=== PATIENT | male | born 1990 | race Two or more races ===

== ENCOUNTER 2016-10-30 16:08 | Inpatient (IN) | payer MEDICAID ==
[~2016-10-30] VITALS: Ht 172.7 cm; Wt 51.1 kg
[~2016-10-30 16:08] MED LIST: ASP81EC PO; Atorvastatin Calcium PO; CLO01T PO; DEXL60CA3 PO; FERR324T4 PO; INSLANTI SC; INSLISPI SC; LOR05T PO
[2016-10-30] MEDS ORDERED: SODIUM CHLORIDE 0.9% 1,000 ML IVB ONE (16:53)
[2016-10-30 16:57] LABS: Basophils # (auto) 0 uL; CONDITION Y; Eosinophils # (auto) 0 uL; Hematocrit 50.9 % (41.0-53.0); Lymphocytes # (auto) 0.7 uL; Lymphocytes % (auto) 4.8 % (10.0-50.0); Mean Corpuscular Hemoglobin 30.1 pg (28.0-32.0); Mean Corpuscular Hgb Conc. 33.3 g/dL (32.0-36.0); Mean Corpuscular Volume 90.2 fL (80.0-100.0); Mean Platelet Volume 9.7 fL (7.4-10.4); Monocytes # (auto) 0.4 uL; Monocytes % (auto) 2.5 % (0.0-12.0); Neutrophils # (auto) 13.9 uL; Neutrophils % (auto) 92.7 % (37.0-80.0); Platelet Count (auto) 338 10^3/uL (140-450); Red Cell Distribution Width 14.4 % (11.6-16.0); SUSPECT SEE PRINTOUT; White Blood Cell 14.9 10^3/uL (4.4-10.8)
[2016-10-30] MEDS ORDERED: ONDANSETRON HCL 4 MG/2 ML VIAL IV ONE (17:00)
[2016-10-30] MEDS ORDERED: InsuLIN REG 1unit/0.01ml Soln (100units/ml) IV ONE (17:00)
[2016-10-30 17:16] LABS: Allen Test No; Base Excess -20.6 mmol/L (-2.0-2.0); Blood 02Sat 90.2 % (96-100); Blood COHb 0.3 % (0.5-1.5); Blood MetHb 0.5 % (0.0-1.5); HHb 9.7 % (0.0-5.0); MODE ROOM AIR; O2Hb 89.5 % (94.0-97.0); PCO2 22.3 mmHg (35.0-45.0); PCO2(T) 22.3 mmHg (35.0-45.0); PO2 68.7 mmHg (80.0-100.0); PO2(T) 68.7 mmHg (80.0-100.0); Sample Type Arterial; pH 7.112 (7.350-7.450)
[2016-10-30 17:26] LABS: Albumin 5.5 g/dL (3.4-5.0); Alkaline Phosphatase 148 U/L (45-117); Anion Gap 26 (5-15); Aspartate Aminotransferase 15 U/L (15-37); BUN/Creatinine Ratio 16.1; Bilirubin, Total 0.6 mg/dL (0.2-1.0); Blood Urea Nitrogen 28 mg/dL (7-18); Calcium 9.3 mg/dL (8.5-10.1); Chloride 91 mmol/L (98-107); GFR African American 60 mL/min; GFR Non-African American 50 mL/min; Sodium 125 mmol/L (136-145); Total Protein 9.3 g/dL (6.4-8.2)
[2016-10-30] MEDS ORDERED: SODIUM BICARBONATE 8.4 % INJ 50ML VIAL IV ONE ×2 (17:30→18:00)
[2016-10-30 17:45] LABS: Magnesium 2.3 mg/dL (1.6-2.6); Potassium 6.2 mmol/L (3.5-5.1)
[2016-10-30] MEDS ORDERED: SODIUM BICARBONATE INFANT SYR 10 ML SYRG IV ONE (17:45)
[2016-10-30 17:46] LABS: Carbon Dioxide 8 mmol/L (21-32); Glucose 591 mg/dL (74-106)
[2016-10-30] MEDS ORDERED: SODIUM BICARBONATE 8.4% INJ 50ML SYRINGE IV ONE (18:00)
[2016-10-30 18:55] LABS: Urine RBC None Seen /hpf (0 - 3)
[2016-10-30] MEDS: SODIUM CHLORIDE 0.9% 1,000 ML IV SCH ×2 (19:30→20:57)
[2016-10-30] MEDS: FAMOTIDINE (10MG/ML) 2ML VL IV SCH (19:30)
[2016-10-30] MEDS ORDERED: InsuLIN R (HUMAN) 100 UNITS in SODIUM CHL 0.9% 99 ML IV SCH ×2 (19:44→19:58)
[2016-10-30] MEDS ORDERED: SODIUM CHLORIDE 0.9% 1,000 ML IV ONE (19:45)
[2016-10-30] MEDS ORDERED: DEXTROSE (50%) 50ML SYRG IV PRN ×2 (19:45→20:00)
[2016-10-30 20:00] LABS: Urine Bilirubin Negative (Negative); Urine Color Yellow (Yellow); Urine Hyaline Cast FEW /lpf (0 - 2); Urine Nitrite Negative (Negative); Urine Squamous Epithelial Cell FEW /hpf (<5); Urine Urobilinogen Normal (Negative); Urine pH 5.5 (5.0-8.0)
[2016-10-30] MEDS ORDERED: NITROGLYCERIN 0.4 MG SL TAB SL PRN (20:00)
[2016-10-30] MEDS ORDERED: ACETAMINOPHEN 500 MG TAB PO PRN (20:00)
[2016-10-30] MEDS ORDERED: MORPHINE SULFATE 4 MG/ML SYRG IV PRN ×2 (20:00)
[2016-10-30] MEDS ORDERED: cefTRIAXone 1GM/50ML D5W 50 ML IV ONE (20:00)
[2016-10-30] MEDS ORDERED: HYDROcodone-ACET 5/325MG TAB PO PRN (20:00)
[2016-10-30] MEDS ORDERED: LORazepam 0.5 MG TAB PO PRN (20:00)
[2016-10-30] MEDS ORDERED: PROMETHAZINE HCL 25 MG/ML 1ML IV PRN (20:00)
[2016-10-30] MEDS ORDERED: TEMAZEPAM 15 MG CAP PO PRN (20:00)
[2016-10-30 20:09] LABS: Urine Blood Negative /uL (Negative); Urine Glucose 4+ mg/dL (Normal); Urine Ketone 4+ (Negative)
[2016-10-30] MEDS: ACCU-CHEK COMFORT CURVE STRIP VI SCH ×4 (20:30→23:30)
[2016-10-30] MEDS ORDERED: ACCU-CHEK COMFORT CURVE STRIP VI SCH (21:00)
[2016-10-30 21:27] LABS: BUN/Creatinine Ratio 18.2; Calcium 9.3 mg/dL (8.5-10.1); Potassium 5.1 mmol/L (3.5-5.1)
[2016-10-30] MEDS ORDERED: SODIUM CHLORIDE 0.9% 1,000 ML IV SCH (23:58)
[2016-10-31] MEDS: ACCU-CHEK COMFORT CURVE STRIP VI SCH ×13 (01:00→12:36)
[2016-10-31 02:07] LABS: Potassium 4.2 mmol/L (3.5-5.1)
[2016-10-31 02:09] LABS: BUN/Creatinine Ratio 18.6
[2016-10-31 02:13] LABS: Calcium 8.4 mg/dL (8.5-10.1)
[2016-10-31] MEDS: SODIUM CHLORIDE 0.9% 1,000 ML IV SCH ×3 (04:00→15:15)
[2016-10-31 06:24] LABS: Basophils # (auto) 0 uL; Basophils % (auto) 0.3 % (0.0-2.0); CONDITION Y; Eosinophils # (auto) 0 uL; Eosinophils % (auto) 0.5 % (0.0-7.0); Hematocrit 39.5 % (41.0-53.0); Hemoglobin 13.9 g/dL (13.5-17.5); Lymphocytes # (auto) 1.5 uL; Lymphocytes % (auto) 17.9 % (10.0-50.0); Mean Corpuscular Hgb Conc. 35.1 g/dL (32.0-36.0); Mean Corpuscular Volume 88.4 fL (80.0-100.0); Mean Platelet Volume 8.5 fL (7.4-10.4); Monocytes # (auto) 0.9 uL; Monocytes % (auto) 11.2 % (0.0-12.0); Neutrophils # (auto) 5.8 uL; Neutrophils % (auto) 70.1 % (37.0-80.0); Platelet Count (auto) 275 10^3/uL (140-450); Red Cell Distribution Width 14.6 % (11.6-16.0); White Blood Cell 8.3 10^3/uL (4.4-10.8)
[2016-10-31 06:48] LABS: Albumin 3.7 g/dL (3.4-5.0); Calcium 8.2 mg/dL (8.5-10.1); Potassium 3.5 mmol/L (3.5-5.1)
[2016-10-31 06:51] LABS: Bilirubin, Total 0.5 mg/dL (0.2-1.0); Total Protein 6.5 g/dL (6.4-8.2)
[2016-10-31] MEDS: FAMOTIDINE (10MG/ML) 2ML VL IV SCH (08:23)
[2016-10-31] MEDS ORDERED: DEXTROSE (50%) 50ML SYRG IV PRN (13:15)
[2016-10-31 14:03] LABS: BUN/Creatinine Ratio 14.9; Calcium 7.8 mg/dL (8.5-10.1); Potassium 3.5 mmol/L (3.5-5.1)
[2016-10-31 14:58] VITALS: BP 104/62
[2016-10-31 15:00] VITALS: BP 104/62
[2016-10-31] MEDS ORDERED: InsuLIN REG 1unit/0.01ml Soln (100units/ml) SC SCH (16:00)
[2016-10-31] MEDS ORDERED: ACCU-CHEK COMFORT CURVE STRIP VI SCH (16:00)
[2016-10-31 16:11] VITALS: BP 104/62
== END 2016-10-31 17:08 | disposition home or self-care (01) | DRG 420 ==
LOC: EDBD 16:08 → ER 16:16 → TELE 16:17 → TELE-CENTR 10-31 14:33
PROVIDERS: ADMIT Internal Medicine; ATTEND Internal Medicine
DX: E10.10 Type 1 diabetes mellitus with ketoacidosis without coma (principal); N17.9 Acute kidney failure, unspecified; I10 Essential (primary) hypertension; E03.9 Hypothyroidism, unspecified; E78.00 Pure hypercholesterolemia, unspecified; E78.5 Hyperlipidemia, unspecified; F41.9 Anxiety disorder, unspecified; E86.0 Dehydration; E87.1 Hypo-osmolality and hyponatremia; E87.6 Hypokalemia; K21.9 Gastro-esophageal reflux disease without esophagitis; Z79.4 Long term (current) use of insulin; Z82.3 Family history of stroke; Z82.49 Family history of ischemic heart disease and other diseases of the circulatory system; Z83.3 Family history of diabetes mellitus
CPT/HCPCS: 36415; 36600; 71020; 74176; 76705; 80048; 80053; 80307; 81001; 82010; 82150; 82805; 82962; 83036; 83605; 83690; 83735; 84439; 84443; 84481; 84484; 85025; 85652; 86141; 87040; 87086; 96365; 96368; 96375; 99291; J0696; J1815; J2405; J3490

== ENCOUNTER 2017-01-28 16:42 | Emergency (ER) | payer MEDICAID ==
[~2017-01-28] VITALS: Ht 170.2 cm; Wt 54.4 kg
[2017-01-28 16:46] VITALS: BP 118/85
[2017-01-28 17:57] LABS: Urine RBC None Seen /hpf (0 - 3)
[2017-01-28 18:08] LABS: Basophils # (auto) 0 uL; Basophils % (auto) 0.4 % (0.0-2.0); Eosinophils # (auto) 0.1 uL; Eosinophils % (auto) 2.9 % (0.0-7.0); Hemoglobin 15.1 g/dL (13.5-17.5); Lymphocytes # (auto) 1.7 uL; Lymphocytes % (auto) 34.3 % (10.0-50.0); Mean Corpuscular Hemoglobin 31.5 pg (28.0-32.0); Mean Corpuscular Hgb Conc. 35.1 g/dL (32.0-36.0); Mean Corpuscular Volume 89.8 fL (80.0-100.0); Mean Platelet Volume 8.4 fL (6.9-10.8); Monocytes # (auto) 0.4 uL; Monocytes % (auto) 7.7 % (0.0-12.0); Neutrophils # (auto) 2.6 uL; Neutrophils % (auto) 54.7 % (37.0-80.0); Nucleated Red Blood Cells % 0.2 %; Platelet Count (auto) 249 10^3/uL (140-450); Red Cell Distribution Width 13.5 % (11.8-14.3); White Blood Cell 4.8 10^3/uL (4.4-10.8)
[2017-01-28 18:17] LABS: Urine Bilirubin Negative (Negative); Urine Blood Negative /uL (Negative); Urine Color Yellow (Yellow); Urine Glucose 4+ mg/dL (Normal); Urine Ketone 3+ (Negative); Urine Nitrite Negative (Negative); Urine Urobilinogen Normal (Negative); Urine pH 5.5 (5.0-8.0)
[2017-01-28 18:23] LABS: Albumin 4.6 g/dL (3.4-5.0); Calcium 9.5 mg/dL (8.5-10.1); Potassium 4.6 mmol/L (3.5-5.1)
[2017-01-28 19:07] LABS: BUN/Creatinine Ratio 7.3; Bilirubin, Total 0.9 mg/dL (0.2-1.0); Total Protein 7.3 g/dL (6.4-8.2)
[2017-01-28 20:22] LABS: Allen Test Yes; Base Excess -2.7 mmol/L (-2.0-2.0); Blood 02Sat 95.2 % (96-100); Blood COHb 0.1 % (0.5-1.5); Blood MetHb 0.3 % (0.0-1.5); HCO3 21.6 mmol/L (22-26.0); HHb 4.8 % (0.0-5.0); MODE ROOM AIR; O2Hb 94.8 % (94.0-97.0); PCO2 36.4 mmHg (35.0-45.0); PCO2(T) 36.4 mmHg (35.0-45.0); PO2 83.1 mmHg (80.0-100.0); PO2(T) 83.1 mmHg (80.0-100.0); Sample Type Arterial; pH 7.392 (7.350-7.450)
== END 2017-01-28 22:03 | disposition left against medical advice (07) ==
LOC: ER 16:58
DX: R06.02 Shortness of breath (principal); Z53.21 Procedure and treatment not carried out due to patient leaving prior to being seen by health care provider
CPT/HCPCS: 36415; 36600; 80053; 80307; 80320; 81001; 82010; 82805; 85025

== ENCOUNTER 2017-02-28 07:49 | Inpatient (IN) | payer MEDICAID ==
[~2017-02-28] VITALS: Ht 170.2 cm; Wt 55.0 kg
[~2017-02-28 07:49] MED LIST changes: -LOR05T PO; +LORA-654 PO
[2017-02-28] MEDS ORDERED: SODIUM CHLORIDE 0.9% 1,000 ML IV ONE (09:27)
[2017-02-28] MEDS ORDERED: SODIUM CHLORIDE 0.9% 3,000 ML IV ONE (09:30)
[2017-02-28] MEDS ORDERED: PROMETHAZINE HCL 25 MG/ML 1ML IV ONE (09:30)
[2017-02-28 09:45] LABS: Basophils # (auto) 0.1 uL; Basophils % (auto) 0.4 % (0.0-2.0); Eosinophils # (auto) 0 uL; Hematocrit 47.6 % (41.0-53.0); Hemoglobin 15.8 g/dL (13.5-17.5); Lymphocytes # (auto) 0.5 uL; Mean Corpuscular Hemoglobin 31.7 pg (28.0-32.0); Mean Corpuscular Hgb Conc. 33.3 g/dL (32.0-36.0); Mean Corpuscular Volume 95.2 fL (80.0-100.0); Mean Platelet Volume 9.2 fL (6.9-10.8); Monocytes # (auto) 0.7 uL; Monocytes % (auto) 3.7 % (0.0-12.0); Neutrophils # (auto) 16.6 uL; Neutrophils % (auto) 92.9 % (37.0-80.0); Platelet Count (auto) 314 10^3/uL (140-450); Red Cell Distribution Width 13.4 % (11.8-14.3); White Blood Cell 17.9 10^3/uL (4.4-10.8)
[2017-02-28 10:00] LABS: Albumin 4.8 g/dL (3.4-5.0); Bilirubin, Total 0.4 mg/dL (0.2-1.0); Calcium 8.8 mg/dL (8.5-10.1); Total Protein 8.6 g/dL (6.4-8.2)
[2017-02-28 10:08] LABS: Urine Bilirubin Negative (Negative); Urine Blood Negative /uL (Negative); Urine Color Colorless (Yellow); Urine Glucose 4+ mg/dL (Normal); Urine Ketone 4+ (Negative); Urine Nitrite Negative (Negative); Urine RBC None Seen /hpf (0 - 3); Urine Urobilinogen Normal (Negative)
[2017-02-28] MEDS ORDERED: InsuLIN REG 1unit/0.01ml Soln (100units/ml) IV ONE (10:15)
[2017-02-28] MEDS ORDERED: CALCIUM CHL 100MG/ML 1,000 MG in D5W 5% 100 ML IV ONE (10:15)
[2017-02-28] MEDS ORDERED: SODIUM BICARBONATE 8.4 % INJ 50ML VIAL IV ONE ×2 (10:15→15:15)
[2017-02-28] MEDS ORDERED: DEXTROSE (50%) 50ML SYRG IV ONE (10:15)
[2017-02-28] MEDS ORDERED: NALBUPHINE HCL 10 MG/1ml INJECTION IV ONE (10:15)
[2017-02-28] MEDS ORDERED: ALBUTEROL SULF 2.5 MG/0.5ML(0.5%) NEB SOLN NEB ONE (10:15)
[2017-02-28] MEDS ORDERED: InsuLIN R (HUMAN) 100 UNITS in SODIUM CHL 0.9% 99 ML IV SCH ×2 (10:17→12:20)
[2017-02-28] MEDS ORDERED: SODIUM BICARBONATE 8.4% INJ 50ML SYRINGE ONE (10:21)
[2017-02-28] MEDS: ACCU-CHEK COMFORT CURVE STRIP VI SCH ×9 (10:30→23:47)
[2017-02-28] MEDS ORDERED: DEXTROSE (50%) 50ML SYRG IV PRN ×2 (10:30→12:30)
[2017-02-28] MEDS ORDERED: ACETAMINOPHEN 325 MG TAB PO PRN (12:45)
[2017-02-28] MEDS ORDERED: HYDROcodone-ACET 5/325MG TAB PO PRN (12:45)
[2017-02-28] MEDS ORDERED: NITROGLYCERIN 0.4 MG SL TAB SL PRN (12:45)
[2017-02-28] MEDS ORDERED: LORazepam 0.5 MG TAB PO PRN (12:45)
[2017-02-28] MEDS ORDERED: cefTRIAXone 1GM/50ML D5W 50 ML IV ONE (12:45)
[2017-02-28] MEDS ORDERED: TEMAZEPAM 15 MG CAP PO PRN (12:45)
[2017-02-28] MEDS ORDERED: ONDANSETRON HCL 4 MG/2 ML VIAL IV PRN (12:45)
[2017-02-28] MEDS ORDERED: VANCOMYCIN PER PHARMACY 0 MG IV SCH (12:45)
[2017-02-28] MEDS ORDERED: cloNIDine HCL 0.1 MG TAB PO PRN (12:45)
[2017-02-28] MEDS ORDERED: MORPHINE SULFATE 10 MG/ML INJ 1ML SDV IV PRN ×2 (12:45)
[2017-02-28] MEDS ORDERED: DOCUSATE SOD 100 MG CAP PO PRN (12:45)
[2017-02-28] MEDS: cefTRIAXone 1GM/50ML D5W 50 ML IV SCH (12:51)
[2017-02-28] MEDS ORDERED: ASPirin-EC 81 mg tab PO ONE (13:00)
[2017-02-28] MEDS ORDERED: MULTIPLE VITAMIN TAB PO ONE (13:00)
[2017-02-28] MEDS ORDERED: FAMOTIDINE 20 MG TAB PO ONE (13:00)
[2017-02-28] MEDS: SODIUM CHLORIDE 0.9% 1,000 ML IV SCH ×5 (13:15→21:35)
[2017-02-28] MEDS: VANCOMYCIN 750 MG in D5W 5% 250 ML IV SCH (13:19)
[2017-02-28 13:44] LABS: Lactic Acid w/Reflex 3.8 mmol/L (0.4-2.0)
[2017-02-28 13:45] LABS: REFLEX LACTIC ACID YES OR NO YES
[2017-02-28 14:49] LABS: Base Excess -16.2 mmol/L (-2.0-2.0); Blood 02Sat 95.2 % (96-100); Blood COHb 0.3 % (0.5-1.5); Blood MetHb 0.4 % (0.0-1.5); HCO3 9.7 mmol/L (22-26.0); HHb 4.8 % (0.0-5.0); MODE ROOM AIR; O2Hb 94.5 % (94.0-97.0); PCO2 24.6 mmHg (35.0-45.0); PCO2(T) 24.6 mmHg (35.0-45.0); PO2 87.5 mmHg (80.0-100.0); PO2(T) 87.5 mmHg (80.0-100.0); Room 1009-ERT; Sample Type Arterial; pH 7.214 (7.350-7.450)
[2017-02-28] MEDS: FERROUS SULFATE 325 MG TAB PO SCH (17:26)
[2017-02-28 18:20] LABS: BUN/Creatinine Ratio 8.6; Calcium 8.5 mg/dL (8.5-10.1); Potassium 3.7 mmol/L (3.5-5.1)
[2017-02-28 18:24] LABS: Lactic Acid w/Reflex 2.6 mmol/L (0.4-2.0)
[2017-02-28 18:25] LABS: REFLEX LACTIC ACID YES OR NO NO
[2017-02-28] MEDS: FAMOTIDINE 20 MG TAB PO SCH (22:05)
[2017-02-28] MEDS: ATORVASTATIN 20 MG TAB PO SCH (22:05)
[2017-03-01] MEDS: SODIUM CHLORIDE 0.9% 1,000 ML IV SCH (01:00)
[2017-03-01 01:02] LABS: BUN/Creatinine Ratio 5.2; Calcium 8.4 mg/dL (8.5-10.1); Potassium 3.4 mmol/L (3.5-5.1)
[2017-03-01] MEDS: ACCU-CHEK COMFORT CURVE STRIP VI SCH ×11 (01:30→21:17)
[2017-03-01] MEDS ORDERED: VANCOMYCIN 1GM/250ML 250 ML IV ONE (02:38)
[2017-03-01] MEDS: VANCOMYCIN 750 MG in D5W 5% 250 ML IV SCH (03:09)
[2017-03-01 06:17] LABS: Basophils # (auto) 0 uL; Basophils % (auto) 0.2 % (0.0-2.0); Eosinophils # (auto) 0 uL; Eosinophils % (auto) 0.5 % (0.0-7.0); Hematocrit 34.5 % (41.0-53.0); Hemoglobin 12.1 g/dL (13.5-17.5); Lymphocytes # (auto) 1.4 uL; Lymphocytes % (auto) 16.9 % (10.0-50.0); Mean Corpuscular Hemoglobin 31.4 pg (28.0-32.0); Mean Corpuscular Volume 89.7 fL (80.0-100.0); Mean Platelet Volume 8.5 fL (6.9-10.8); Monocytes # (auto) 0.6 uL; Monocytes % (auto) 7.7 % (0.0-12.0); Neutrophils % (auto) 74.7 % (37.0-80.0); Nucleated Red Blood Cells % 0.1 %; Platelet Count (auto) 235 10^3/uL (140-450); Red Cell Distribution Width 13.2 % (11.8-14.3); White Blood Cell 8.1 10^3/uL (4.4-10.8)
[2017-03-01 06:20] LABS: BUN/Creatinine Ratio 5.3; Bilirubin, Total 0.6 mg/dL (0.2-1.0); Calcium 8.1 mg/dL (8.5-10.1); Total Protein 5.6 g/dL (6.4-8.2)
[2017-03-01 06:27] LABS: Potassium 2.9 mmol/L (3.5-5.1)
[2017-03-01] MEDS: D5W/SOD CHL 0.45%/KCL 20MEQ 1,000 ML IV SCH ×2 (07:11→16:29)
[2017-03-01] MEDS: FERROUS SULFATE 325 MG TAB PO SCH ×2 (08:00→16:45)
[2017-03-01 08:14] LABS: BUN/Creatinine Ratio 5.7; Calcium 8.1 mg/dL (8.5-10.1)
[2017-03-01 08:25] LABS: Potassium 2.8 mmol/L (3.5-5.1)
[2017-03-01] MEDS: MULTIPLE VITAMIN TAB PO SCH (09:29)
[2017-03-01] MEDS: ASPirin-EC 81 mg tab PO SCH (09:29)
[2017-03-01] MEDS: FAMOTIDINE 20 MG TAB PO SCH ×2 (09:29→21:16)
[2017-03-01] MEDS ORDERED: DEXILANT 60 MG PO SCH (10:00)
[2017-03-01] MEDS: cefTRIAXone 1GM/50ML D5W 50 ML IV SCH (10:30)
[2017-03-01] MEDS ORDERED: DEXTROSE (50%) 50ML SYRG IV PRN (11:00)
[2017-03-01] MEDS ORDERED: POTASSIUM CHL 20 Meq TABLET PO ONE (11:00)
[2017-03-01] MEDS: InsuLIN REG 1unit/0.01ml Soln (100units/ml) SC SCH ×3 (11:35→21:33)
[2017-03-01] MEDS: Boost Glucose Control 8 Ounces PO SCH ×3 (12:00→21:17)
[2017-03-01 16:09] VITALS: BP 130/83
[2017-03-01 16:24] LABS: BUN/Creatinine Ratio 3.1; Calcium 8.3 mg/dL (8.5-10.1); Potassium 3.3 mmol/L (3.5-5.1)
[2017-03-01] MEDS: VANCOMYCIN 1GM/250ML 250 ML IV SCH (16:45)
[2017-03-01] MEDS: ATORVASTATIN 20 MG TAB PO SCH (21:17)
[2017-03-01 21:19] VITALS: BP 121/82
[2017-03-01 21:22] VITALS: BP 126/86
[2017-03-01] MEDS ORDERED: INSULIN DETEMIR(LEVEMIR) 1unit/0.01ml Soln (100units/ml) SC SCH (22:00)
[2017-03-02] MEDS ORDERED: POTASSIUM CHL 20 Meq TABLET PO ONE (01:00)
[2017-03-02] MEDS: ACCU-CHEK COMFORT CURVE STRIP VI SCH ×3 (01:26→07:39)
[2017-03-02] MEDS: InsuLIN REG 1unit/0.01ml Soln (100units/ml) SC SCH ×3 (01:27→07:46)
[2017-03-02] MEDS: D5W/SOD CHL 0.45%/KCL 20MEQ 1,000 ML IV SCH (03:00)
[2017-03-02 04:59] VITALS: BP 134/98
[2017-03-02 05:06] LABS: Thyroxine (T4) 4.7 ug/dL (4.5-12.0)
[2017-03-02 05:16] LABS: Basophils # (auto) 0.1 uL; Basophils % (auto) 0.8 % (0.0-2.0); Eosinophils # (auto) 0.1 uL; Eosinophils % (auto) 0.7 % (0.0-7.0); Hematocrit 40.8 % (41.0-53.0); Hemoglobin 14.1 g/dL (13.5-17.5); Lymphocytes # (auto) 1.5 uL; Lymphocytes % (auto) 20.8 % (10.0-50.0); Mean Corpuscular Hemoglobin 31.1 pg (28.0-32.0); Mean Corpuscular Hgb Conc. 34.7 g/dL (32.0-36.0); Mean Corpuscular Volume 89.8 fL (80.0-100.0); Mean Platelet Volume 8.8 fL (6.9-10.8); Monocytes # (auto) 0.5 uL; Monocytes % (auto) 6.7 % (0.0-12.0); Nucleated Red Blood Cells % 0.1 %; Platelet Count (auto) 265 10^3/uL (140-450)
[2017-03-02 05:41] LABS: Albumin 3.3 g/dL (3.4-5.0); BUN/Creatinine Ratio 4.5; Bilirubin, Total 0.5 mg/dL (0.2-1.0); Calcium 8.7 mg/dL (8.5-10.1); Potassium 3.3 mmol/L (3.5-5.1); Total Protein 6.4 g/dL (6.4-8.2)
[2017-03-02] MEDS: Boost Glucose Control 8 Ounces PO SCH (06:00)
[2017-03-02] MEDS: VANCOMYCIN 1GM/250ML 250 ML IV SCH (06:23)
[2017-03-02] MEDS: cefTRIAXone 1GM/50ML D5W 50 ML IV SCH (07:38)
[2017-03-02] MEDS: FAMOTIDINE 20 MG TAB PO SCH (07:38)
[2017-03-02] MEDS: FERROUS SULFATE 325 MG TAB PO SCH (07:39)
[2017-03-02] MEDS: MULTIPLE VITAMIN TAB PO SCH (07:39)
[2017-03-02] MEDS: ASPirin-EC 81 mg tab PO SCH (07:39)
[2017-03-02 09:00] VITALS: BP 117/72
[2017-03-02] MEDS ORDERED: POTASSIUM CHLORIDE 8 MEQ TAB PO ONE (09:45)
[2017-03-02 10:38] VITALS: BP 117/72
== END 2017-03-02 11:30 | disposition home or self-care (01) | DRG 420 ==
LOC: ER 07:49 → EDBD 07:49 → TELE 07:50 → TELE-E-ADS 03-01 12:37 → TELE-WESTW 03-01 16:27
PROVIDERS: ADMIT Internal Medicine; ATTEND Internal Medicine
DX: E10.10 Type 1 diabetes mellitus with ketoacidosis without coma (principal); K85.90 Acute pancreatitis without necrosis or infection, unspecified; E44.0 Moderate protein-calorie malnutrition; E10.21 Type 1 diabetes mellitus with diabetic nephropathy; E87.5 Hyperkalemia; K86.1 Other chronic pancreatitis; E86.0 Dehydration; D63.8 Anemia in other chronic diseases classified elsewhere; E03.9 Hypothyroidism, unspecified; E10.22 Type 1 diabetes mellitus with diabetic chronic kidney disease; E78.5 Hyperlipidemia, unspecified; E87.6 Hypokalemia; F12.10 Cannabis abuse, uncomplicated; F15.10 Other stimulant abuse, uncomplicated; F41.9 Anxiety disorder, unspecified; I12.9 Hypertensive chronic kidney disease with stage 1 through stage 4 chronic kidney disease, or unspecified chronic kidney disease; N18.2 Chronic kidney disease, stage 2 (mild); K21.9 Gastro-esophageal reflux disease without esophagitis; Z79.4 Long term (current) use of insulin; Z82.3 Family history of stroke; Z82.49 Family history of ischemic heart disease and other diseases of the circulatory system; Z83.3 Family history of diabetes mellitus; Z79.899 Other long term (current) drug therapy; Z79.82 Long term (current) use of aspirin
CPT/HCPCS: 36415; 36600; 71020; 80048; 80053; 80307; 81001; 82010; 82150; 82805; 82962; 83036; 83605; 83690; 83735; 83930; 84443; 85025; 87040; 87086; 93306; 94640; 96361; 96374; 96375; 99291; J0696; J1815; J2405; J7060

== ENCOUNTER 2017-04-27 14:12 | Emergency (ER) | payer MEDICAID ==
[~2017-04-27] VITALS: Ht 170.2 cm; Wt 63.5 kg
[2017-04-27 14:37] VITALS: BP 141/99
[2017-04-27 15:08] LABS: Basophils # (auto) 0 uL; Basophils % (auto) 0.6 % (0.0-2.0); Eosinophils # (auto) 0 uL; Hematocrit 47.7 % (41.0-53.0); Hemoglobin 16.3 g/dL (13.5-17.5); Lymphocytes # (auto) 0.4 uL; Lymphocytes % (auto) 8.9 % (10.0-50.0); Mean Corpuscular Hemoglobin 31.3 pg (28.0-32.0); Mean Corpuscular Hgb Conc. 34.1 g/dL (32.0-36.0); Mean Corpuscular Volume 91.8 fL (80.0-100.0); Monocytes # (auto) 0.2 uL; Neutrophils # (auto) 4.1 uL; Neutrophils % (auto) 86.5 % (37.0-80.0); Nucleated Red Blood Cells % 0.1 %; Platelet Count (auto) 239 10^3/uL (140-450); Red Blood Cells 5.19 10^6/uL (4.5-5.90); Red Cell Distribution Width 12.9 % (11.8-14.3); White Blood Cell 4.8 10^3/uL (4.4-10.8)
[2017-04-27 15:33] LABS: Albumin 4.3 g/dL (3.4-5.0); BUN/Creatinine Ratio 13.4; Bilirubin, Total 0.4 mg/dL (0.2-1.0); Calcium 8.1 mg/dL (8.5-10.1); Potassium 4.5 mmol/L (3.5-5.1); Total Protein 7.6 g/dL (6.4-8.2)
== END 2017-04-27 16:37 | disposition left against medical advice (07) ==
LOC: EDBD 14:12 → ER 14:29
DX: R73.9 Hyperglycemia, unspecified (principal); Z53.21 Procedure and treatment not carried out due to patient leaving prior to being seen by health care provider
CPT/HCPCS: 36415; 80053; 85025

== ENCOUNTER 2018-11-28 10:25 | Inpatient (IN) | payer SELFPAY ==
[~2018-11-28] VITALS: Ht 33 cm; Wt 54.9 kg
[~2018-11-28 10:25] MED LIST changes: -LORA-654 PO; +LORA0.5T12 PO
[2018-11-28] MEDS ORDERED: SODIUM CHLORIDE 0.9% 1,000 ML IV SCH ×5 (10:33→18:19)
[2018-11-28] MEDS ORDERED: InsuLIN R (HUMAN) 100 UNITS in SODIUM CHL 0.9% 99 ML IV SCH (10:33)
[2018-11-28] MEDS ORDERED: DEXTROSE (50%) 50ML SYRG IV PRN ×3 (10:45→21:45)
[2018-11-28 10:58] LABS: Basophils # (auto) 0.1 uL; Basophils % (auto) 0.6 % (0.0-2.0); Eosinophils # (auto) 0 uL; Eosinophils % (auto) 0.1 % (0.0-7.0); Hematocrit 47.4 % (41.0-53.0); Hemoglobin 15.5 g/dL (13.5-17.5); Lymphocytes % (auto) 10.9 % (10.0-50.0); Mean Corpuscular Hemoglobin 31.2 pg (28.0-32.0); Mean Corpuscular Hgb Conc. 32.8 g/dL (32.0-36.0); Mean Corpuscular Volume 95.3 fL (80.0-100.0); Monocytes # (auto) 0.6 uL; Monocytes % (auto) 6.1 % (0.0-12.0); Neutrophils # (auto) 7.7 uL; Neutrophils % (auto) 82.3 % (37.0-80.0); Platelet Count (auto) 280 10^3/uL (140-450); Red Blood Cells 4.97 10^6/uL (4.5-5.90); Red Cell Distribution Width 13.9 % (11.8-14.3); White Blood Cell 9.4 10^3/uL (4.4-10.8)
[2018-11-28 11:09] LABS: Calcium 9.5 mg/dL (8.5-10.1); Magnesium 2.2 mg/dL (1.6-2.6)
[2018-11-28] MEDS ORDERED: ONDANSETRON HCL 4 MG/2 ML VIAL IV ONE (11:15)
[2018-11-28 11:37] LABS: Potassium 5.8 mmol/L (3.5-5.1)
[2018-11-28] MEDS ORDERED: SODIUM CHLORIDE 0.9% 1,000 ML IV ONE (11:45)
[2018-11-28] MEDS ORDERED: InsuLIN REG 1unit/0.01ml Soln (100units/ml) IV ONE (11:45)
[2018-11-28] MEDS ORDERED: ACCU-CHEK COMFORT CURVE STRIP VI SCH (12:00)
[2018-11-28] MEDS ORDERED: traMADol HCL 50 MG TAB PO PRN (12:30)
[2018-11-28] MEDS ORDERED: MORPHINE SULF INJ 2 MG/ML SYRINGE 1ML IV PRN (12:30)
[2018-11-28] MEDS ORDERED: INSULIN LANTUS (GLARGINE) 1 /0.01ml (100units/ml) SC ONE (12:30)
[2018-11-28] MEDS ORDERED: PROMETHAZINE HCL 25 MG/ML 1ML IV PRN (12:30)
[2018-11-28] MEDS ORDERED: ACETAMINOPHEN 500 MG TAB PO PRN (12:30)
[2018-11-28] MEDS ORDERED: NITROGLYCERIN 0.4 MG SL TAB SL PRN (12:30)
[2018-11-28] MEDS: InsuLIN R (HUMAN) 100 UNITS in SODIUM CHL 0.9% 99 ML IV SCH ×2 (13:19→21:21)
[2018-11-28 13:31] LABS: BUN/Creatinine Ratio 13.3; Calcium 7.7 mg/dL (8.5-10.1); Potassium 4.7 mmol/L (3.5-5.1)
[2018-11-28 13:31] LABS: Urine Bacteria NONE SEEN /hpf (None Seen); Urine Blood Negative /uL (Negative); Urine Hyaline Cast FEW /lpf (0 - 2); Urine Mucus FEW (None Seen); Urine Specific Gravity 1.017 (1.001-1.035); Urine WBC <1 /hpf (0 - 3)
[2018-11-28] MEDS: SODIUM CHLORIDE 0.9% 1,000 ML IV SCH ×3 (13:40→22:00)
[2018-11-28] MEDS: ACCU-CHEK COMFORT CURVE STRIP VI SCH ×6 (14:00→21:00)
[2018-11-28 16:36] LABS: BUN/Creatinine Ratio 12.4; Calcium 7.8 mg/dL (8.5-10.1); Potassium 4.9 mmol/L (3.5-5.1)
[2018-11-28] MEDS ORDERED: ALUM & MAG HYDROX-SIMETH LIQ(MAALOX) 30 ML PO PRN (19:45)
[2018-11-28 21:04] LABS: Calcium 7.3 mg/dL (8.5-10.1); Potassium 4.2 mmol/L (3.5-5.1)
[2018-11-28] MEDS: INSULIN LANTUS (GLARGINE) 1 /0.01ml (100units/ml) SC SCH (22:00)
[2018-11-29] MEDS: ACCU-CHEK COMFORT CURVE STRIP VI SCH ×5 (00:05→17:33)
[2018-11-29] MEDS: TEMAZEPAM 15 MG CAP PO PRN ×2 (00:13→23:00)
[2018-11-29] MEDS: InsuLIN REG 1unit/0.01ml Soln (100units/ml) SC SCH ×5 (04:26→18:05)
[2018-11-29] MEDS: SODIUM CHLORIDE 0.9% 1,000 ML IV SCH ×2 (04:27→11:20)
[2018-11-29 06:58] LABS: Calcium 7.7 mg/dL (8.5-10.1); Potassium 4.2 mmol/L (3.5-5.1)
[2018-11-29 07:00] LABS: BUN/Creatinine Ratio 7.5
[2018-11-29] MEDS: INSULIN LANTUS (GLARGINE) 1 /0.01ml (100units/ml) SC SCH ×2 (08:50→22:00)
[2018-11-29] MEDS: PANTOPRAZOLE 40 MG TAB PO SCH (08:54)
[2018-11-29 11:42] VITALS: BP 125/83
--- NOTE | 2018-11-29 11:47 | NUR ---
PT ARRIVED TO FLOOR APPROX. 1100 FROM ER. A/O X4. MOTHER AT BEDSIDE. DENIES PAIN. VSS. WILL CONTINUE TO MONITOR.
[2018-11-29 13:00] VITALS: BP 125/83
[2018-11-29] MEDS ORDERED: LEVOTHYROXINE SODIUM 100 MCG/5 ML INJ IV ONE (14:30)
[2018-11-29 15:37] LABS: Free T3 1.58 pg/mL (2.3-4.2); Free T4 (Free Thyroxine) 0.68 ng/dL (0.89-1.76)
[2018-11-29 17:00] VITALS: BP 103/73
--- NOTE | 2018-11-29 19:30 | NUR ---
Opening Shift Note Assumed care of patient, awake and alertX4. Parents at bedside. No S/S of distress/SOB or pain.Skin clear. IV patent Steady gait. Instructed on POC and to call for assist PRN, will continue to monitor for changes Q1hr and PRN.
[2018-11-29 22:08] VITALS: BP 125/74
[2018-11-30 05:06] VITALS: BP 110/69
[2018-11-30] MEDS: InsuLIN REG 1unit/0.01ml Soln (100units/ml) SC SCH ×3 (06:00→11:48)
[2018-11-30] MEDS: ACCU-CHEK COMFORT CURVE STRIP VI SCH ×3 (06:22→11:49)
[2018-11-30] MEDS: INSULIN LANTUS (GLARGINE) 1 /0.01ml (100units/ml) SC SCH (06:25)
[2018-11-30] MEDS ORDERED: LEVOTHYROXINE SODIUM 50 MCG TAB PO SCH (07:00)
[2018-11-30 08:22] VITALS: BP 130/81
[2018-11-30] MEDS ORDERED: LEV50T PO (10:03)
[2018-11-30] MEDS ORDERED: CALCIUM ACETATE 667 MG CAP PO ONE (11:30)
[2018-11-30] MEDS: PANTOPRAZOLE 40 MG TAB PO SCH (11:47)
--- NOTE | 2018-11-30 13:41 | NUR ---
DISCHARGE INSTRUCTIONS GIVEN TO PT AND FAMILY. PT VERBALIZED UNDERSTANDING. PT DISCHARGED HOME WITH FAMILY.
== END 2018-11-30 13:30 | disposition home or self-care (01) | DRG 637 ==
LOC: EDBD 10:25 → ER 10:25 → EDUNIT# 10:25 → OVERFLOW 10:26 → TELE-WESTW 11-29 11:44 → WEST WING 11-29 13:42
PROVIDERS: ADMIT Internal Medicine; ATTEND Internal Medicine
DX: E11.10 Type 2 diabetes mellitus with ketoacidosis without coma (principal); N17.0 Acute kidney failure with tubular necrosis; E87.1 Hypo-osmolality and hyponatremia; Z79.4 Long term (current) use of insulin; K21.9 Gastro-esophageal reflux disease without esophagitis; E87.5 Hyperkalemia; E87.8 Other disorders of electrolyte and fluid balance, not elsewhere classified; E78.5 Hyperlipidemia, unspecified; E03.9 Hypothyroidism, unspecified; I10 Essential (primary) hypertension; F41.9 Anxiety disorder, unspecified; Z83.3 Family history of diabetes mellitus; Z82.49 Family history of ischemic heart disease and other diseases of the circulatory system; Z82.3 Family history of stroke; Z91.14 Patient's other noncompliance with medication regimen; Z79.899 Other long term (current) drug therapy
CPT/HCPCS: 36415; 36600; 71045; 80048; 81001; 82010; 82150; 82805; 82962; 83036; 83690; 83735; 84100; 84439; 84443; 84481; 85025; 93005; 94761; 96365; 96372; 96375; 99291; G0378; J1815; J2405; J3490

== ENCOUNTER → 2019-03-09 | Outpatient (CLI) | payer MEDICAID ==
[~2019-03-09] VITALS: Ht 170.2 cm; Wt 56.7 kg
[~2019-03-09] MED LIST changes: +LEV50T PO
== END | disposition home or self-care (01) ==
LOC: Rad HDHVI 09:17
PROVIDERS: ATTEND Internal Medicine
DX: E03.9 Hypothyroidism, unspecified (principal); R42 Dizziness and giddiness; R06.02 Shortness of breath; R53.83 Other fatigue; F41.9 Anxiety disorder, unspecified; E11.9 Type 2 diabetes mellitus without complications; E78.00 Pure hypercholesterolemia, unspecified
CPT/HCPCS: 93017

== ENCOUNTER → 2024-02-09 | Outpatient (CLI) | payer MEDICAID ==
[~2024-02-09] MED LIST changes: -ASP81EC PO; +ASPI-394 PO; -DEXL60CA3 PO; +DEXL60CA4 PO; -LEV50T PO; +LEVO-848 PO; +LORA-1121 PO; -LORA0.5T12 PO
== END | disposition home or self-care (01) ==
LOC: Rad HDHVI 15:53
PROVIDERS: ATTEND Internal Medicine Cardiovascular Disease
DX: I07.1 Rheumatic tricuspid insufficiency (principal)
CPT/HCPCS: 93306

== ENCOUNTER → 2024-02-14 | Outpatient (CLI) | payer MEDICAID ==
[~2024-02-14] VITALS: Ht 154.9 cm; Wt 52.2 kg
== END | disposition home or self-care (01) ==
LOC: Rad HDHVI 07:51
PROVIDERS: ATTEND Internal Medicine Cardiovascular Disease
DX: R00.0 Tachycardia, unspecified (principal); I10 Essential (primary) hypertension; E78.00 Pure hypercholesterolemia, unspecified; E11.9 Type 2 diabetes mellitus without complications
CPT/HCPCS: 78452; 93017; 96374; A9500